=== PATIENT | female | born 1995 | race African-American/Black ===

== ENCOUNTER 2021-10-21 21:58 | Emergency (ER) | payer SELFPAY ==
[~2021-10-21] VITALS: Ht 162.6 cm; Wt 77.0 kg
[2021-10-21] MEDS ORDERED: ACETAMINOPHEN 325MG TABLET PO ONE (23:00)
[2021-10-22 01:07] LABS: CLARITY URINE CLEAR (CLEAR); COLOR URINE YELLOW (YELLOW); KETONES URINE NEGATIVE (NEGATIVE); LEUKOCYTE ESTERASE URINE NEGATIVE (NEGATIVE); NITRITE URINE NEGATIVE (NEGATIVE); OCCULT BLOOD URINE NEGATIVE (NEGATIVE); PH URINE 6.5 (4.5-8.0); PROTEIN URINE NEGATIVE (NEGATIVE); SPECIFIC GRAVITY URINE 1.018 (1.005-1.030); UROBILINOGEN URINE 0.2 E.U./dL (0.2-1.0)
[2021-10-22] MEDS ORDERED: ONDANSETRON 4MG ODT PO ONE (01:15)
[2021-10-22 01:29] LABS: BASOPHILS % 0.5 % (0.0-2.0); EOSINOPHILS % 1.6 % (0.0-5.0); HEMATOCRIT. 34.1 % (36.0-48.0); HEMOGLOBIN. 11.3 g/dL (12.0-16.0); LYMPHOCYTES % 28.4 % (20.0-50.0); MEAN CORPUSCULAR HEMOGLOBIN 28.9 pg (28.0-32.0); MEAN CORPUSCULAR VOLUME 87.4 fL (81.0-99.0); MEAN PLATELET VOLUME 9.5 fl (7.4-10.4); MONOCYTES % 7.5 % (2.0-8.0); PLATELET 257 x1000/uL (130-400); RED CELL DISTRIBUTION WIDTH 15.5 % (11.6-14.6)
[2021-10-22 01:41] LABS: CHLORIDE 110 mEq/L (98-107)
[2021-10-22 01:43] LABS: HCG SCREEN NEGATIVE
[2021-10-22 04:00] VITALS: BP 128/76
== END 2021-10-22 04:15 | disposition home or self-care (01) ==
LOC: ER 21:58
DX: R10.9 Unspecified abdominal pain (principal); K29.00 Acute gastritis without bleeding; D64.9 Anemia, unspecified; E87.6 Hypokalemia; J45.909 Unspecified asthma, uncomplicated
CPT/HCPCS: 36415; 80053; 81003; 81025; 84703; 85025; 99283; Q0162